=== PATIENT | male | born 1970 | race Caucasian/White ===

== ENCOUNTER 2020-08-05 19:34 | Emergency (ER) | payer OTHER ==
[~2020-08-05] VITALS: Ht 177.8 cm; Wt 85.0 kg
[2020-08-05] MEDS ORDERED: CEPHALEXIN 500 MG CAPSULE PO ONE (20:00)
[2020-08-05] MEDS ORDERED: SULFAMETH./TRIMETHOPRIM DS 800MG/160MG TABLET PO ONE (20:00)
[2020-08-05] MEDS ORDERED: CEPHALEXIN 500 MG CAPSULE ONE (20:04)
[2020-08-05] MEDS ORDERED: SULFAMETH./TRIMETHOPRIM DS 800MG/160MG TABLET ONE (20:04)
[2020-08-05] MEDS ORDERED: ACETAMINOPHEN 500 MG TABLET ONE ×2 (20:08→20:11)
[2020-08-05] MEDS ORDERED: ACETAMINOPHEN 325 MG TABLET PO ONE (20:30)
[2020-08-05] MEDS ORDERED: PLEASE ENTER ALLERGIES MC SCH (20:30)
[2020-08-05] MEDS ORDERED: ACETAMINOPHEN 500 MG TABLET PO ONE (20:30)
[2020-08-05 22:15] VITALS: BP 142/64
--- NOTE | 2020-08-05 22:52 | NUR ---
f/u and d/c instructions given to pt and to [facility] escorting pt. pt v/u. prescriptions for pain and for antibiotics also given. pt d/c'd in custody.
== END 2020-08-05 22:54 | disposition home or self-care (01) ==
LOC: ED 19:43
DX: L02.31 Cutaneous abscess of buttock (principal); M79.89 Other specified soft tissue disorders; M79.605 Pain in left leg
CPT/HCPCS: 99284